=== PATIENT | female | born 1980 | race Caucasian/White ===

== ENCOUNTER 2017-11-16 10:17 | Emergency (ER) | payer MEDICAID ==
[~2017-11-16] VITALS: Ht 154.9 cm; Wt 63.5 kg
[~2017-11-16 10:17] MED LIST: PREN-385 PO
[2017-11-16 10:25] VITALS: BP 126/84
[2017-11-16] MEDS ORDERED: KETOROLAC 60 MG/2 ML VIAL IM ONE (10:40)
[2017-11-16 11:25] VITALS: BP 102/60
== END 2017-11-16 11:25 | disposition home or self-care (01) ==
LOC: MED 10:17
DX: H92.02 Otalgia, left ear (principal)
CPT/HCPCS: 96372; 99283; J1885

== ENCOUNTER 2019-06-01 07:10 | Emergency (ER) | payer SELFPAY ==
[~2019-06-01] VITALS: Ht 157.5 cm; Wt 68.9 kg
[2019-06-01 07:12] VITALS: BP 115/76
--- NOTE | 2019-06-01 07:19 | NUR ---
PT TAKEN TO BED 6
--- NOTE | 2019-06-01 07:20 | NUR ---
Pt bib family c/o Intermittent Lower back pain radiates to lower abdomen x 4 months. Denies urinary problems. Pain 8/10. PT DENIES N/V/D; SKIN IS INTACT, PINK/WARM/DRY; AAOX4, PERRL, WITH EVEN AND STEADY GAIT; LUNGS CLEAR BL, BREATHING UNLABORED; HR EVEN AND REGULAR, BL PERIPHERAL PULSES PRESENT; BS ACTIVE X4, NO TENDERNESS TO PALPATION. PT DENIES ANY FEVER, CP, SOB, OR COUGH AT THIS TIME; PT STATES 6/10 PAIN AT THIS TIME; VSS; PATIENT POSITIONED FOR COMFORT; HOB ELEVATED; BEDRAILS UP X2; BED DOWN.
[2019-06-01] MEDS ORDERED: KETOROLAC 30 MG/ML VIAL IM ONE (07:35)
--- NOTE | 2019-06-01 07:50 | NUR ---
lab at bedside, ua sent, IM pain meds given-nadr at this time.
--- NOTE | 2019-06-01 07:58 | NUR ---
PT TO CT VIA WHEELCHAIR.
[2019-06-01 08:04] LABS: BASOPHILS # (AUTO) 0.1 K/uL (0.00-0.22); BASOPHILS % (AUTO) 0.9 % (0.0-2.0); EOSINOPHILS # (AUTO) 0.1 K/uL (0-0.4); EOSINOPHILS % (AUTO) 0.8 % (0.0-4.0); HEMATOCRIT 39.4 % (36-48); HEMOGLOBIN 13.1 g/dL (12.0-16.0); LYMPHOCYTES # (AUTO) 2.1 K/uL (2.5-16.5); LYMPHOCYTES % (AUTO) 23.2 % (20.5-51.1); MEAN CORPUSCULAR HEMOGLOBIN 29 pg (27-31); MEAN CORPUSCULAR HGB CONC 33 g/dL (33-37); MEAN CORPUSCULAR VOLUME 86.4 fL (80-94); MONOCYTES # (AUTO) 0.5 K/uL (0.8-1.0); MONOCYTES % (AUTO) 5.5 % (1.7-9.3); NEUTROPHILS # (AUTO) 6.4 K/uL (1.8-7.7); NEUTROPHILS % (AUTO) 69.6 % (42.2-75.2); PLATELET COUNT (AUTO) 268 K/uL (140-450); RED BLOOD CELL COUNT(AUTO) 4.56 MIL/uL (4.20-5.40); RED CELL DISTRIBUTION WIDTH 13.3 % (11.6-13.7); WHITE BLOOD COUNT (AUTO) 9.2 K/uL (4.8-10.8)
[2019-06-01 08:11] LABS: APPEARANCE,URINE SL CLOUDY (CLEAR); BILIRUBIN,URINE NEGATIVE (NEGATIVE); BLOOD, URINE TRACE-I (NEGATIVE); COLOR,URINE YELLOW (YELLOW); NITRITE, URINE NEGATIVE (NEGATIVE); PH,URINE 7.5 (5.0-9.0); UGLUCOSE NEGATIVE (NEGATIVE)
[2019-06-01 08:30] LABS: ALBUMIN 3.6 g/dL (3.4-5.0); ANION GAP 11.6 (8-16); CARBON DIOXIDE 31.6 mmol/L (21-32); CREATININE 0.7 mg/dL (0.6-1.3); POTASSIUM 4.2 mmol/L (3.5-5.1); TOTAL BILIRUBIN 0.3 mg/dL (0.0-1.0)
[2019-06-01 08:53] LABS: LEUKOCYTE ESTERASE ,URINE TRACE (NEGATIVE); RBC,URINE 0-5 /HPF (0-5); WBC,URINE 0-5 /HPF (0-5)
[2019-06-01 08:55] LABS: OTHER CASTS, URINE FEW CLUE CELLS /LPF (None Seen)
--- NOTE | 2019-06-01 08:59 | NUR ---
RESTING WITH EYES CLOSED, VISIBLE RISE AND FALL OF THE CHEST. X 1 SIDE RAIL RAISED, BED LOCKED AND IN LOW POSITION. WILL CONTINUE TO MONITOR
[2019-06-01 09:25] VITALS: BP 114/77
--- NOTE | 2019-06-01 09:26 | NUR ---
Patient discharged with v/s stable. Written and verbal after care instructions given and explained. Patient alert, oriented and verbalized understanding of instructions. Ambulatory with steady gait. All questions addressed prior to discharge. ID band removed. Patient advised to follow up with PMD. Rx of ZOFRAN AND NORCO given. Patient educated on indication of medication including possible reaction and side effects. Opportunity to ask questions provided and answered.
== END 2019-06-01 09:26 | disposition home or self-care (01) ==
LOC: MED 07:10
DX: K80.20 Calculus of gallbladder without cholecystitis without obstruction (principal); N83.202 Unspecified ovarian cyst, left side; Z79.899 Other long term (current) drug therapy
CPT/HCPCS: 36415; 74176; 80053; 81001; 81025; 85025; 87086; 96372; 99284; J1885